=== PATIENT | male | born 1990 | race Caucasian/White ===

== ENCOUNTER 2025-02-21 03:25 | Emergency (ER) | payer OTHER ==
[2025-02-21] MEDS ORDERED: Hydromorphone 1 mg/ml Injection ONE ×2 (03:40→04:51)
[2025-02-21] MEDS: Zofran 4 MG/2 ML VIAL IV ONE (03:40)
[2025-02-21] MEDS: MORPHINE SULFATE 4 MG INJ IV ONE (03:40)
--- NOTE | 2025-02-21 03:58 | ERPHSYRPT ---
- History of Present Illness Time Seen by Provider: 02/21/25 03:54 Source: patient Exam Limitations: no limitations Physician History: 35-year-old male presents to our ED via EMS from senior care for evaluation. Patient reportedly fell off of a top bunk and injured his head. Patient reportedly had a seizure. Patient has multiple lacerations to the right side of head. There is one at the right posterior temporal area and one behind the ear. Patient appears to have a dislocated left shoulder. Patient is conversant normal O2 sat. Patient is protecting his airway well. Patient looks very thin. Patient states he had an esophagectomy in the past. A PEG tube was placed. The PEG tube was subsequently removed approximately 2 months ago. Has been on Ensure for the past couple months. Patient states that his nutrition has been limited and that he has lost some weight since then. Patient voices no other complaints or concerns at this time. Timing/Duration: today Severity: moderate Modifying Factors: Improves With: nothing Associated Symptoms: denies symptoms Allergies/Adverse Reactions: No Known Drug Allergies Allergy (Unverified 02/21/25 04:08) - Review of Systems Constitutional: No Symptoms, No Fever, No Chills Eyes: No Symptoms Ears, Nose, & Throat: No Symptoms Respiratory: No Symptoms, No Cough, No Dyspnea Cardiac: No Symptoms, No Chest Pain, No Edema, No Syncope Abdominal/Gastrointestinal: No Symptoms, No Abdominal Pain, No Nausea, No Vomiting, No Diarrhea Genitourinary Symptoms: No Symptoms, No Dysuria Musculoskeletal: No Symptoms, No Back Pain, No Neck Pain Skin: No Symptoms, No Rash Neurological: No Symptoms, No Dizziness, No Focal Weakness, No Sensory Changes Psychological: No Symptoms Endocrine: No Symptoms Hematologic/Lymphatic: No Symptoms Immunological/Allergic: No Symptoms All Other Systems: Reviewed and Negative - Nursing Vital Signs Nursing Vital Signs: Initial Vital Signs Temperature 96.5 F 02/21/25 03:29 Pulse Rate 79 02/21/25 03:29 Respiratory Rate 25 H 02/21/25 03:29 Blood Pressure 141/81 02/21/25 03:29 O2 Sat by Pulse Oximetry 100 02/21/25 03:29 Pain Scale Pain Intensity 4 - Physical Exam General Appearance: no apparent distress, alert, other (3 cm laceration right scalp at the posterior temporal region) Eye Exam: PERRL/EOMI, eyes nml inspection Ears, Nose, Throat Exam: normal ENT inspection, TMs normal, pharynx normal, moist mucous membranes Neck Exam: normal inspection, non-tender, supple, full range of motion, other (There is a superficial 1 cm laceration posterior right ear. No active bleeding.) Respiratory Exam: normal breath sounds, lungs clear, airway intact, No respiratory distress Cardiovascular Exam: regular rate/rhythm, normal heart sounds, normal peripheral pulses Gastrointestinal/Abdomen Exam: soft, normal bowel sounds, No tenderness, No mass Back Exam: normal inspection, normal range of motion, No CVA tenderness, No vertebral tenderness Extremity Exam: normal inspection, normal range of motion, pelvis stable, other (Deformity left shoulder appears dislocated. The involved left upper extremity is neurovascular tact distally compartments are soft cap refill less than 2 seconds) Neurologic Exam: alert, oriented x 3, cooperative, normal mood/affect, nml cerebellar function, nml station & gait, sensation nml, No motor deficits Skin Exam: normal color, warm, dry, No rash Lymphatic Exam: No adenopathy SpO2 Interpretation: normal SpO2: 100 O2 Delivery: Room Air Procedures - Joint Reduction Time of Procedure: 03:30 Timeout: Performed Joint Reduction Site: Left Conscious Sedation: No Reduction Attempts: 1 Pre-Procedure Neurovascular Exam: neurovascular intact Post Procedure Neurovascular Exam: neurovascular intact Post Joint Reduction Film: joint reduced Progress: Patient's left shoulder was dislocated clinically. The involved extremities neurovascular intact distally. Shoulder reduced via the Ross Method. patient neurovascular tact distally post procedure. Patient tolerated procedure well. Patient received morphine and Dilaudid at time of shoulder reduction. - Laceration/Wound Repair Right Temporal Time of Procedure: 03:10 Wound Location: Right Wound Length (cm): 3 Wound's Depth, Shape: superficial Wound Explored: clean Irrigated: Yes Hibiclens Prep: Yes Wound Debrided: Debridement indicated Wound Repaired With: [place] Number of Sutures: 3 Layer Closure?: No Sterile Dressing Applied?: Yes Splint Applied?: No Sling Applied?: No Progress: 02/21/25 03:58 Patient tolerated procedure well. No intra or postprocedural complications. - Course Nursing assessment & vital signs reviewed: Yes EKG Interpreted by Me: RATE ([id number]), Sinus Rhythm, NORMAL AXIS, NORMAL INTERVALS, NORMAL QRS - Radiology Exams Shoulder X-ray Interpretation: Teleradiologist Report (No fracture or dislocation.) Chest X-ray Interpretation: Teleradiologist Report (Prominent bronchovascular markings) - CT Exams Chest CT Interpretation: Tele-radiologist Report (Bronchitis) Cervical Spine CT Interpretation: Tele-radiologist Report (No fracture or dislocation) Ordered Tests: Active Orders 24 hr Category Date Time Status [place] STAT Care 02/21/25 03:33 Active EKG-ER Only STAT Care 02/21/25 03:33 Active IV Insertion STAT Care 02/21/25 03:33 Active Pulse Oximetry (ED) STAT Care 02/21/25 03:33 Active CERVICAL SPINE WO CONTRAST [CT] Stat Exams 02/21/25 03:35 Completed CHEST 1 VIEW (PORTABLE) Stat Exams 02/21/25 03:33 Completed CHEST WITH CONTRAST [CT] Stat Exams 02/21/25 04:03 Completed HEAD WITHOUT CONTRAST [CT] Stat Exams 02/21/25 03:35 Completed SHOULDER Stat Exams 02/21/25 03:35 Completed CBC W DIFF Stat Lab 02/21/25 04:05 Completed CMP Stat Lab 02/21/25 04:43 Completed TROPONIN Q4H Lab 02/21/25 04:43 Completed TROPONIN Q4H Lab 02/21/25 07:45 Ordered TROPONIN Q4H Lab 02/21/25 11:45 Ordered UA W/RFX UR CULTURE Stat Lab 02/21/25 04:19 Completed Medication Summary Generic Name Dose Route Start Last Admin Trade Name Freq PRN Reason Stop Dose Admin Sodium Chloride 1,000 mls @ 100 mls/hr 02/21/25 03:45 02/21/25 04:10 Sodium Chloride 0.9% 1000 Ml IV 03/23/25 03:44 100 mls/hr .Q10H SEKOU Administration Discontinued Medications Generic Name Dose Route Start Last Admin Trade Name Freq PRN Reason Stop Dose Admin Hydromorphone HCl 0.5 mg 02/21/25 03:39 02/21/25 04:08 Hydromorphone 1 Mg/1ml Inj IV 02/21/25 03:40 0.5 mg STAT ONE Administration Hydromorphone HCl Confirm 02/21/25 03:40 Hydromorphone 1 Mg/1ml Inj Administered 02/21/25 03:41 Dose 1 mg .ROUTE .STK-MED ONE Hydromorphone HCl 0.5 mg 02/21/25 04:47 02/21/25 04:52 Hydromorphone 1 Mg/1ml Inj IV 02/21/25 04:48 0.5 mg STAT ONE Administration Hydromorphone HCl Confirm 02/21/25 04:51 Hydromorphone 1 Mg/1ml Inj Administered 02/21/25 04:52 Dose 1 mg .ROUTE .STK-MED ONE Morphine Sulfate 4 mg 02/21/25 04:10 02/21/25 03:40 Morphine Sulfate 4 Mg/Ml Injection IV 02/21/25 04:11 4 mg STAT ONE Administration Ondansetron HCl 4 mg 02/21/25 04:10 02/21/25 03:40 Ondansetron Hcl 4 Mg/2 Ml Vial IV 02/21/25 04:11 4 mg STAT ONE Administration Lab/Rad Data: Laboratory Result Diagrams 02/21/25 04:05 02/21/25 04:43 Laboratory Results 02/21/25 02/21/25 02/21/25 Range/Units 04:43 04:43 04:19 WBC (4.23-9.07) x10^3/uL RBC (4.63-6.08) x10^6/uL Hgb (13.7-17.5) g/dL Hct (40.1-51.0) % MCV (79.0-92.2) fL MCH (25.7-32.2) pg MCHC (32.3-36.5) g/dL RDW (11.6-14.4) % Plt Count (163-337) x10^3/uL MPV (9.4-12.4) fL Gran % (34.0-67.9) % Immature Gran % (Auto) (0.001-0.429) % Nucleat RBC Rel Count (0.00-0.2) % Eos # (Auto) (0.04-0.54) x10^3/uL Immature Gran # (Auto) (0.001-0.031) x10^3u/L Absolute Lymphs (auto) (1.32-3.57) x10^3/uL Absolute Monos (auto) (0.30-0.82) x10^3/uL Absolute Nucleated RBC (0.00-0.012) x10^3u/L Lymphocytes % (21.8-53.1) % Monocytes % (5.3-12.2) % Eosinophils % (0.8-7.0) % Basophils % (0.2-1.2) % Absolute Granulocytes (1.78-5.38) x10^3/uL Basophils # (0.01-0.08) x10^3/uL Sodium 140 (135-145) mmol/L Potassium 4.0 (3.5-5.1) mmol/L Chloride 101 (98-107) mmol/L Carbon Dioxide 29 (22-30) mmol/L Anion Gap 14.2 (5-15) MEQ/L BUN 10 (9-20) mg/dL Creatinine 0.52 L (0.66-1.25) mg/dL Estimated GFR 134.0 ML/MIN Glucose 94 (74-106) mg/dL Calcium 9.3 (8.4-10.2) mg/dL Total Bilirubin 0.30 (0.2-1.3) mg/dL AST 27 (17-59) U/L ALT 13 (0-50) U/L Alkaline Phosphatase 90 (38-126) U/L Troponin I < 0.012 (0.000-0.033) ng/mL Serum Total Protein 7.5 (6.3-8.2) g/dL Albumin 4.2 (3.5-5.0) g/dL Urine Color Yellow (Yellow) Urine Appearance Clear (Clear) Urine pH 7.5 (4.6-8.0) Ur Specific [place] <=1.005 (1.005-1.030) Urine Protein Negative (Negative) Urine Glucose (UA) Negative (Negative) mg/dL Urine Ketones Negative (Negative) Urine Blood Negative (Negative) Urine Nitrite Negative (Negative) Urine Bilirubin Negative (Negative) Urine Urobilinogen 0.2 (0.2) mg/dL Ur Leukocyte Esterase Negative (Negative) U Hyaline Cast (Auto) NONE SEEN (0-2) /LPF Urine Microscopic RBC 0-2 (0-5) /HPF Urine Microscopic WBC 0-2 (0-5) /HPF Ur Epithelial Cells None Seen (None Seen) /HPF Urine Bacteria None Seen (None Seen) /HPF Urine Culture Reflexed NO (NO) 05/15/25 Range/Units 04:05 WBC 14.2 H (4.23-9.07) x10^3/uL RBC 3.51 L (4.63-6.08) x10^6/uL Hgb 10.0 L (13.7-17.5) g/dL Hct 31.7 L (40.1-51.0) % MCV 90.3 (79.0-92.2) fL MCH 28.5 (25.7-32.2) pg MCHC 31.5 L (32.3-36.5) g/dL RDW 14.1 (11.6-14.4) % Plt Count 307 (163-337) x10^3/uL MPV 10.6 (9.4-12.4) fL Gran % 85.1 H (34.0-67.9) % Immature Gran % (Auto) 0.3 (0.001-0.429) % Nucleat RBC Rel Count 0.0 (0.00-0.2) % Eos # (Auto) 0.20 (0.04-0.54) x10^3/uL Immature Gran # (Auto) 0.04 H (0.001-0.031) x10^3u/L Absolute Lymphs (auto) 1.00 L (1.32-3.57) x10^3/uL Absolute Monos (auto) 0.77 (0.30-0.82) x10^3/uL Absolute Nucleated RBC 0.00 (0.00-0.012) x10^3u/L Lymphocytes % 7.0 L (21.8-53.1) % Monocytes % 5.4 (5.3-12.2) % Eosinophils % 1.4 (0.8-7.0) % Basophils % 0.8 (0.2-1.2) % Absolute Granulocytes 12.08 H (1.78-5.38) x10^3/uL Basophils # 0.11 H (0.01-0.08) x10^3/uL Sodium (135-145) mmol/L Potassium (3.5-5.1) mmol/L Chloride (98-107) mmol/L Carbon Dioxide (22-30) mmol/L Anion Gap (5-15) MEQ/L BUN (9-20) mg/dL Creatinine (0.66-1.25) mg/dL Estimated GFR ML/MIN Glucose (74-106) mg/dL Calcium (8.4-10.2) mg/dL Total Bilirubin (0.2-1.3) mg/dL AST (17-59) U/L ALT (0-50) U/L Alkaline Phosphatase (38-126) U/L Troponin I (0.000-0.033) ng/mL Serum Total Protein (6.3-8.2) g/dL Albumin (3.5-5.0) g/dL Urine Color (Yellow) Urine Appearance (Clear) Urine pH (4.6-8.0) Ur Specific [place] (1.005-1.030) Urine Protein (Negative) Urine Glucose (UA) (Negative) mg/dL Urine Ketones (Negative) Urine Blood (Negative) Urine Nitrite (Negative) Urine Bilirubin (Negative) Urine Urobilinogen (0.2) mg/dL Ur Leukocyte Esterase (Negative) U Hyaline Cast (Auto) (0-2) /LPF Urine Microscopic RBC (0-5) /HPF Urine Microscopic WBC (0-5) /HPF Ur Epithelial Cells (None Seen) /HPF Urine Bacteria (None Seen) /HPF Urine Culture Reflexed (NO) - Progress Progress: improved Progress Note: We are still awaiting results on the imaging studies. I contacted our radiology department. There is no known time of completion. We contacted [facility] as patient was intended to go there in the first place. Patient was diverted here because of acuity. We advised them that patient is stable. However imaging studies are pending. They accepted patient transfer before imaging studies become available. We are still waiting for the CT head C-spine and chest. 02/21/25 05:[address] Arambula at 5:27 AM. 02/21/25 05:58 35-year-old male presents to our ED from senior care for evaluation post falling off of his bed however physical exam reveals lacerations to the scalp consistent with trauma with a sharp object. CT head negative for acute intracranial pathology. Laboratory workup shows hemoglobin of 10. Leukocytosis observed as well. However no signs of infection. Patient has no fever. Patient transferred to [facility] for further evaluation and treatment. Portions of this note were created with voice recognition technology. There may be grammatical, spelling, punctuation or sound alike errors Complexity of problem addressed is moderate acute complicated. No critical care time. Complex of data reviewed and analyzed as extensive. Test ordered test reviewed results analyzed and correlated clinically with history and physical exam. Management discussed with [facility] who accepts transfer. Risk of complication or risk of morbidity/mortality of patient management high. Patient requires transfer for further evaluation and treatment. Vital stable. Time spent to transfer patient is approximately 30 minutes. Plan of care established for shared decision making. No social determinants of health present to impede follow-up. Portions of this note were created with voice recognition technology. There may be grammatical, spelling, punctuation or sound alike errors 02/21/25 06:00 02/21/25 06:02 Counseled pt/family regarding: lab results, diagnosis, rad results - Departure Departure Disposition: Transfer Clinical Impression: Trauma, Seizure, Scalp laceration, Leukocytosis Condition: Stable Critical Care Time: No [facility] [Primary Care Provider, UNKNOWN] - Follow up/PCP as directed
[2025-02-21 04:07] LABS: Absolute Neutrophil Ct (ANC) 12.08 x10^3/uL (1.78-5.38); BASOPHIL % 0.8 % (0.2-1.2); Basophil (Absolute #) 0.11 x10^3/uL (0.01-0.08); Eosinophil % 1.4 % (0.8-7.0); Hematocrit 31.7 % (40.1-51.0); IMMATURE GRAN # 0.04 x10^3u/L (0.001-0.031); IMMATURE GRAN % 0.3 % (0.001-0.429); Mean Cell Volume 90.3 fL (79.0-92.2); Mean Corpuscular Hemoglobin 28.5 pg (25.7-32.2); Mean Corpuscular Hgb Concent. 31.5 g/dL (32.3-36.5); Mean Platelet Volume 10.6 fL (9.4-12.4); Monocyte (Absolute #) 0.77 x10^3/uL (0.30-0.82); Monocytes % 5.4 % (5.3-12.2); Neutrophil % 85.1 % (34.0-67.9); Platelet Count 307 x10^3/uL (163-337); Red Blood Count 3.51 x10^6/uL (4.63-6.08); Red Cell Distribution Width 14.1 % (11.6-14.4); White Blood Count 14.2 x10^3/uL (4.23-9.07)
[2025-02-21] MEDS: Hydromorphone 1 mg/ml Injection IV ONE ×2 (04:08→04:52)
[2025-02-21] MEDS ORDERED: Sodium Chloride 0.9% 1000 ML 1,000 ML ONE (04:10)
[2025-02-21] MEDS: Sodium Chloride 0.9% 1000 ML 1,000 ML IV SCH (04:10)
--- NOTE | 2025-02-21 04:57 | XRAY ---
CLINICAL HISTORY: sob COMPARISON: No prior studies are available for comparison. TECHNIQUE: Portable X-ray image of the chest is obtained in AP projection. FINDINGS: The image is rotated. Pulmonary Parenchyma: Lungs are hyperinflated, show prominent perihilar bronchovascular markings with interstitial thickening. Right upper zone reticular shadowing/airspace opacity noted with adjacent apical pleural thickening, with possible right upper and lower bronchiectatic changes. No evidence of consolidation, collapse, or focal opacities. No pulmonary nodules are identified. No evidence of pleural effusion. Heart and Mediastinum: Heart size appears enlarged. No mediastinal widening or masses. No hilar or mediastinal lymphadenopathy. Bony Thorax: Bony thorax appears intact without fractures or deformities. Soft Tissues: Soft tissues overlying the chest wall are unremarkable. IMPRESSION: 1. Hyperinflated lungs show prominent bronchovascular markings with interstitial thickening; clinical correlation is advised. 2. Right upper zone, reticular shadowing/air space opacity, with right lower and upper possible bronchiectatic changes, suspicious of apical fibrosis/underlying air-space opacity could not be ruled out, please correlate clinically and with previous images if available, further evaluation with CT advised. Electronically Signed by: Rocio Masters MD. (02/21/2025 04:53:18 EDT)
[2025-02-21 04:59] LABS: Appearance Clear (Clear); Bacteria None Seen /HPF (None Seen); Bilirubin Negative (Negative); Blood Negative (Negative); Epithelial Cells None Seen /HPF (None Seen); Glucose, Urine Negative (Negative); Hyaline Casts NONE SEEN /LPF (0-2); Ketones Negative (Negative); Leukocyte Esterase Negative (Negative); Nitrite Negative (Negative); Ph 7.5 (4.6-8.0); Protein,Urine Dip Negative (Negative); RBC 0-2 /HPF (0-5); Specific Gravity <=1.005 (1.005-1.030); Urobilinogen 0.2 mg/dL (0.2); WBC 0-2 /HPF (0-5)
[2025-02-21 04:59] LABS: ALBUMIN 4.2 g/dL (3.5-5.0); ANION GAP 14.2 MEQ/L (5-15); BILIRUBIN,TOTAL 0.3 mg/dL (0.2-1.3); Calcium 9.3 mg/dL (8.4-10.2); Creatinine 1 0.52 mg/dL (0.66-1.25); Total Protein 7.5 g/dL (6.3-8.2)
[2025-02-21 05:11] VITALS: TEMP 98.8
--- NOTE | 2025-02-21 05:21 | XRAY ---
CLINICAL HISTORY: pain COMPARISON: None. TECHNIQUE: Multiple axial images are obtained from the skull base to the vertex without contrast. CT scan was performed according to ALARA (as low as reasonable achievable). FINDINGS: The brain shows normal morphology, attenuation, and volume for age. No evidence of space occupying lesion, hemorrhage, edema, mass effect, midline shift, extra axial collection, or hydrocephalus is noted. Ventricles, sulci, and basal cisterns are symmetric and normal in size and configuration. The gilbert-white matter differentiation is preserved. Visualized paranasal sinuses and mastoid air cells are well aerated. Orbital contents are within normal limits. Bony structures are intact. IMPRESSION: 1. No evidence of acute intracranial abnormality is demonstrated Electronically Signed by: Esteban Renee MD. (02/21/2025 05:18:07 EDT)
[2025-02-21 05:32] VITALS: BP 127/70; PULSE 72; RESP 20
--- NOTE | 2025-02-21 05:33 | XRAY ---
CLINICAL HISTORY: pain COMPARISON: None. TECHNIQUE: Computed tomography of the cervical spine performed without intravenous contrast. Contiguous axial images were obtained from the skull base to T2, with sagittal and coronal reformatted images reconstructed from the axial data. CT scan was performed according to ALARA (as low as reasonable achievable). FINDINGS: Motion artifact adjacent to C4 and C5 vertebra limits evaluation ( kindly repeat study /x-ray evaluation suggested)The normal cervical lordotic curvature is maintained. Cervical vertebral bodies are normal in height and alignment, with no evidence of fracture or subluxation. Lateral masses of C1 are symmetrical, and the dens is intact. Prevertebral soft tissues are not widened. The remaining suprahyoid and infrahyoid soft tissues in the neck are unremarkable. 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 Non-fusion of the spinous process of C2 vertebra and posterior elements of C2 vertebra on the left side are noted. C2-C3: No disc bulge, mass effect on the cord or neuroforaminal narrowing. C3-C4: No disc bulge, mass effect on the cord or neuroforaminal narrowing. C4-C5: No disc bulge, mass effect on the cord or neuroforaminal narrowing. C5-C6: No disc bulge, mass effect on the cord or neuroforaminal narrowing. C6-C7: No disc bulge, mass effect on the cord or neuroforaminal narrowing. C7-T1: No disc bulge, mass effect on the cord or neuroforaminal narrowing. Thyroid gland appears unremarkable. Bilateral apical lung fibrosis. 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 Non-fusion of the spinous process of C2 vertebra and posterior elements of C2 vertebra on the left side are noted. Electronically Signed by: Esteban Renee MD. (02/21/2025 05:30:44 EDT)
[2025-02-21 05:44] VITALS: O2SAT 100
--- NOTE | 2025-02-21 05:53 | XRAY ---
CLINICAL HISTORY: pain COMPARISON: None. TECHNIQUE: Radiograph of shoulder was acquired. FINDINGS: There is no evidence of acute fracture, dislocation or osseous lesion. The acromioclavicular joint space is preserved. The glenohumeral joint space is preserved. The adjacent soft tissues appear unremarkable, with no evidence of joint effusion. IMPRESSION: 1. No acute osseous or soft tissue abnormality. Electronically Signed by: Esteban Renee MD. (02/21/2025 05:50:36 EDT)
--- NOTE | 2025-02-21 05:53 | XRAY ---
CLINICAL HISTORY: pain COMPARISON: None. TECHNIQUE: Contiguous axial images were obtained from the neck base through the upper abdomen following intravenous administration of contrast material. If IV contrast material had not been administered, the likelihood of detecting abnormalities relevant to the patient's condition would have been substantially decreased. In addition, sagittal and coronal reconstructions were performed. CT scan was performed according to ALARA (as low as reasonable achievable). FINDINGS: Multiple scattered centrilobular nodular infiltrates with branching pattern giving tree in bud appearance are noted involving right upper, mid and lower lobe, left lower lobe and lingula Mild adjacent peribronchial thickening is seen. Esophagogastric anastomosis done which is noted in the anterior mediastinum. Rest of lungs are clear The central airways are patent. There are no pleural effusions. No pneumothorax is seen. No axillary, hilar, or mediastinal adenopathy is identified. The visualized thyroid is unremarkable. The heart, aorta, and pulmonary arteries are of normal size and configuration. No pericardial effusion is identified. Imaged portions of the upper abdomen are unremarkable. No aggressive appearing osseous lesions are identified. IMPRESSION: 1. Esophagogastric anastomosis done which is noted in the anterior mediastinum. 2. Multiple scattered centrilobular nodular infiltrates with branching pattern giving tree in bud appearance are noted involving right upper, mid and lower lobe, left lower lobe and lingula with mild adjacent peribronchial thickening is seen.- possibility of infective etiology/bronchiolitis likely. Electronically Signed by: Esteban Renee MD. (02/21/2025 05:49:48 EDT)
== END 2025-02-21 05:48 | disposition short-term general hospital (02) ==
LOC: EEVIPCON 03:25 → ED 03:25
DX: S01.01XA Laceration without foreign body of scalp, initial encounter (principal); W45.8XXA Other foreign body or object entering through skin, initial encounter; Y92.143 Cell of prison as the place of occurrence of the external cause; R56.9 Unspecified convulsions; D72.829 Elevated white blood cell count, unspecified; S43.005A Unspecified dislocation of left shoulder joint, initial encounter
CPT/HCPCS: 12002; 23650; 36415; 51702; 70450; 71045; 71260; 72125; 73030; 80053; 81001; 84484; 85025; 93005; 93041; 94760; 96374; 96375; 96376; 99285; J1171; J2270; J2405